=== PATIENT | female | born 1995 | race Caucasian/White ===

== ENCOUNTER → 2017-10-19 | Outpatient (CLI) | payer SELFPAY | END | disposition home or self-care (01) | LOC: RAD 10:57 | PROVIDERS: ATTEND Specialist | DX: Z36.89 Encounter for other specified antenatal screening (principal) ==

== ENCOUNTER 2017-11-22 20:51 | Inpatient (IN) ==
[2017-11-22] MEDS ORDERED: D5LR 1L W PITOCIN 10 UNITS/L 10 UNITS/1,000 ML BAG IV PRN (21:07)
[2017-11-22] MEDS ORDERED: MORPHINE SULFATE INJ 2 MG INJ IVP PRN (21:07)
[2017-11-22] MEDS ORDERED: LR 1000 ML IV 1,000 ML IV PRN (21:07)
[2017-11-22] MEDS ORDERED: REGLAN INJ 10 MG VIAL IVP PRN (21:07)
[2017-11-22] MEDS ORDERED: PHENERGAN INJ 25 MG IVP PRN (21:07)
[2017-11-22] MEDS ORDERED: D5 1/2 NS 1000 ML 1,000 ML IV SCH (21:07)
[2017-11-22] MEDS ORDERED: NUBAIN INJ 200 MG VIAL MULTIDOSE IVP PRN (21:07)
[2017-11-22] MEDS ORDERED: NAROPIN EPIDURAL 0.2% 97 ML with FENTANYL INJ 250 mcg 150 MCG EPI PRN ×2 (21:07)
[2017-11-22] MEDS ORDERED: PITOCIN IVP ONE (21:07)
[2017-11-22] MEDS ORDERED: D5 1/2 NS 1L W PITOCIN 20 UNITS/L 20 UNITS/1,000 ML BAG IV ONE (21:12)
[2017-11-22 21:33] LABS: BASOPHILS % (AUTO) 0.2 % (0.2-1.0); EOSINOPHILS # (AUTO) 0.1 x10^3/uL (0.0-0.2); EOSINOPHILS % (AUTO) 0.8 % (0.9-2.9); HEMATOCRIT 38.8 % (36.0-47.0); HEMOGLOBIN 13.1 g/dL (12.0-16.0); LYMPHOCYTES # (AUTO) 1.5 X10^3/uL (1.3-2.9); LYMPHOCYTES % (AUTO) 14.1 % (21.0-51.0); MEAN CORPUSCULAR HEMOGLOBIN 31.3 pg (27.0-34.0); MEAN CORPUSCULAR HGB CONC 33.8 g/dL (33.0-35.0); MEAN CORPUSCULAR VOLUME 92.6 fL (80.0-100.0); MEAN PLATELET VOLUME 9.9 fL (7.4-11.0); MONOCYTES # (AUTO) 0.7 x10^3/uL (0.3-0.8); NEUTROPHILS # (AUTO) 8.3 x10^3/uL (2.2-4.8); NEUTROPHILS % (AUTO) 77.9 % (42.0-75.0); PLATELET COUNT 214 X10^3/uL (150.0-450.0); RED BLOOD COUNT 4.19 X10^6/uL (3.5-5.4); RED CELL DISTRIBUTION WIDTH 13.7 % (11.6-16.5); WHITE BLOOD COUNT 10.7 X10^3/uL (3.6-10.0)
[2017-11-22 21:37] LABS: BLOOD UREA NITROGEN 6 mg/dL (7-18); CALCIUM 9.3 mg/dL (8.5-10.1); CARBON DIOXIDE 28.4 mmol/L (21-32); CHLORIDE 103 mmol/L (98-107); CREATININE 0.61 mg/dL (0.55-1.02); SODIUM 138 mmol/L (136-145); eGFR NON BLACK RACES > 60 (>60)
[2017-11-22 22:07] LABS: BILIRUBIN,URINE 1+ (NEGATIVE); BLOOD/HEMOGLOBIN,URINE 1+ (NEGATIVE); GLUCOSE, URINE NEGATIVE (NEGATIVE); KETONES,URINE 1+ (NEGATIVE); LEUKOCYTE ESTERASE ,URINE 1+ (NEGATIVE); NITRITES,URINE NEGATIVE (NEGATIVE); PROTEIN,URINE 2+ (NEGATIVE); UROBILINOGEN,URINE 2+ (NORMAL)
[2017-11-22 22:20] LABS: APPEARANCE,URINE CLEAR (CLEAR); BACTERIA,URINE TRACE /HPF (NEGATIVE); COLOR,URINE AMBER (YELLOW); MUCUS,URINE MANY /HPF (NEGATIVE); SQUAMOUS EPITHELIAL CELL,UR MODERATE /HPF (NEGATIVE)
[2017-11-23] MEDS ORDERED: NUBAIN INJ 10 ONE (01:41)
[2017-11-23] MEDS ORDERED: XYLOCAINE 1 % (PLAIN) ONE (03:57)
[2017-11-23] MEDS ORDERED: MOTRIN TAB 800 MG PO PRN (04:11)
[2017-11-23] MEDS ORDERED: PHENERGAN INJ 25 MG IV PRN (04:11)
--- NOTE | 2017-11-23 04:11 | DR.OB ---
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 Head delivered over intact perineum. No nuchal cord. Nose and mouth bulb suctioned. Body delivered over intact perineum. Cord clamped x 2 and cut. handed to attendant. Cord sent for gases. Placenta delivered spontaneously / intact / 3 vessel cord. No CVX tears. A small midline perineal tear noted and repaired with 0-vicryl in usual fashion. Viable female infant, VTX/OA, wt=7'3" and 9/9, stable to NBN. Mother stable to RR. [id number].
[2017-11-23] MEDS ORDERED: MILK OF MAGNESIA PO PRN (04:56)
[2017-11-23] MEDS ORDERED: DERMOPLAST SPRAY TOP PRN (04:56)
[2017-11-23] MEDS ORDERED: AMBIEN PO PRN (04:56)
[2017-11-23] MEDS ORDERED: ADACEL or BOOSTRIX TDaP VACCINE IM ONE ×2 (04:56→10:00)
[2017-11-23] MEDS: D5 1/2 NS 1000 ML 1,000 ML with PITOCIN 20 UNITS IV SCH ×2 (04:58)
[2017-11-23 06:22] LABS: HEMATOCRIT 37.6 % (36.0-47.0); HEMOGLOBIN 12.8 g/dL (12.0-16.0)
[2017-11-23] MEDS: ZANTAC PO SCH ×2 (09:42→20:25)
[2017-11-23] MEDS: PRENATAL PLUS PO SCH (09:42)
[2017-11-24] MEDS: D5 1/2 NS 1000 ML 1,000 ML with PITOCIN 20 UNITS IV SCH ×2 (00:33)
[2017-11-24] MEDS: PRENATAL PLUS PO SCH (08:29)
[2017-11-24] MEDS: ZANTAC PO SCH (08:30)
[2017-11-24 09:16] VITALS: BP 124/74
== END 2017-11-24 11:05 | disposition home or self-care (01) | DRG 775 ==
LOC: LD 20:51 → MED/SURG 11-23 04:25
PROVIDERS: ADMIT Specialist; ATTEND Specialist
DX: O60.14X0 Preterm labor third trimester with preterm delivery third trimester, not applicable or unspecified; Z3A.36 36 weeks gestation of pregnancy; O70.1 Second degree perineal laceration during delivery; O99.013 Anemia complicating pregnancy, third trimester; Z37.0 Single live birth; D50.8 Other iron deficiency anemias
CPT/HCPCS: 36415; 59409; 80048; 81001; 85014; 85018; 85025; 86592; 86850; 86900; 86901; 90715; A4216; A4222; S0197; J2300; J2590; S5010

== ENCOUNTER 2022-07-30 06:12 | Inpatient (IN) ==
[2022-07-30] MEDS ORDERED: NUBAIN INJ 20 MG AMP IVP PRN (06:17)
[2022-07-30] MEDS ORDERED: PITOCIN IVP ONE (06:17)
[2022-07-30] MEDS ORDERED: D5 1/2 NS 1,000 ML 1,000 ML IV SCH (06:17)
[2022-07-30] MEDS ORDERED: MORPHINE SULFATE INJ 2 MG INJ IVP PRN (06:17)
[2022-07-30] MEDS ORDERED: REGLAN INJ 10 MG VIAL IVP PRN (06:17)
[2022-07-30] MEDS ORDERED: D5 LR + PITOCIN 10 UNITS/L 10 UNITS/1,000 ML BAG IV PRN (06:17)
[2022-07-30] MEDS ORDERED: BETADINE SOLN ONE (06:18)
[2022-07-30] MEDS ORDERED: D5 1/2 NS 1,000 mL + PITOCIN 20 UNITS/L IV 20 UNITS/1,000 ML BAG IV ONE (06:19)
--- NOTE | 2022-07-30 07:01 | DR.OB ---
OB Quick Note - Assessment/Plan Assessment/Plan: L&D 07/30/22 at 6:50am S-No complaint. O-Afebrile,VSS LRV=327 with good LTV, +accel, no decel. CTX=occasional, mild CVX=3cm/50%/-1/VTX AROM with clear fluid. IUPC and FSE placed. A-IUP at 39 5/7 weeks for induction P-Begin pitocin induction Anticipate
[2022-07-30] MEDS ORDERED: STADOL INJ IVP PRN (10:05)
[2022-07-30] MEDS ORDERED: ZOFRAN INJ 4 MG VIAL IVP PRN (10:15)
--- NOTE | 2022-07-30 12:11 | DR.OB ---
OB Quick Note - Assessment/Plan Assessment/Plan: L&D 07/30/22 at 12:05pm Pitocin=12mu/min. S-No complaint except pain with CTX. O-Afebrile,VSS SCD=514 with good LTV, +accel, no decel. CTX=q 1 1/2 to 2 min., about 45-55mmHg CVX=9cm/50%/-1 A-IUP at 39 5/7 weeks for induction P-Cont. pitocin induction Anticipate
--- NOTE | 2022-07-30 13:46 | DR.OB ---
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 Head delivered over intact perineum. Nose and mouth bulb suctioned. No nuchal cord. Body delivered over intact perineum. Cord clamped x 2 and cut. handed to attendant. Cord sent for gases. Placenta delivered spontaneously / intact / 3 vessel cord over intact perineum. No CVX / vaginal / perineal tears. Viable female delivered by SVE, wt=7'10" and 9/9, stable to NBN. Mother stable to RR. XIP=[id number].
[2022-07-30] MEDS ORDERED: MOTRIN TAB 800 MG PO ONE (13:57)
[2022-07-30] MEDS: D5 1/2 NS 1,000 ML 1,000 ML with PITOCIN 20 UNITS IV SCH ×4 (14:00→22:53)
[2022-07-30] MEDS: MOTRIN TAB 800 MG PO PRN ×2 (14:00→18:54)
[2022-07-30] MEDS ORDERED: DERMOPLAST PAIN RELIEF SPRAY TOP PRN (14:39)
[2022-07-30] MEDS ORDERED: AMBIEN PO PRN (14:39)
[2022-07-30] MEDS ORDERED: ADACEL or BOOSTRIX TDaP VACCINE IM ONE (14:39)
[2022-07-30] MEDS ORDERED: MILK OF MAGNESIA PO PRN (14:39)
[2022-07-31 04:42] LABS: HEMATOCRIT 32.1 % (36.0-47.0); HEMOGLOBIN 10.7 g/dL (12.0-16.0)
[2022-07-31] MEDS: D5 1/2 NS 1,000 ML 1,000 ML with PITOCIN 20 UNITS IV SCH ×2 (06:15)
[2022-07-31] MEDS ORDERED: PRENATAL PLUS PO SCH (09:00)
[2022-07-31 12:03] VITALS: BP 99/61
== END 2022-07-31 15:34 | disposition home or self-care (01) | DRG 807 ==
LOC: LD 06:12 → MED/SURG 15:08
PROVIDERS: ADMIT Specialist; ATTEND Specialist
DX: Z3A.39 39 weeks gestation of pregnancy; O80 Encounter for full-term uncomplicated delivery; Z37.0 Single live birth